=== PATIENT | female | born 1950 | race Caucasian/White ===

== ENCOUNTER 2016-07-31 17:03 | Observation (INO) | payer MEDICARE, MEDICAID ==
[~2016-07-31] VITALS: Ht 157.5 cm; Wt 75.0 kg
[~2016-07-31 17:03] MED LIST: CEPH500C3 PO; LISI-360 PO; VESI10TA4 PO; VICT18IN SQ
[2016-07-31 17:06] VITALS: BP 180/88; PULSE 88; RESP 12; TEMP 98.3; O2SAT 96
[2016-07-31] MEDS ORDERED: VICT18IN SQ (19:23)
[2016-07-31] MEDS ORDERED: LISI10TA3 PO (19:23)
[2016-07-31] MEDS ORDERED: SODIUM CHLORIDE 0.9% FLUSH 5 ML FLUSH IVF PRN (20:00)
--- NOTE | 2016-07-31 20:01 | PD ---
HPI Chief Complaint: Head Injury Time Seen by Provider: 19:30 Travel History International Travel<30 days: No Contact w/Intl Traveler<30days: No Traveled to known affect area: No History of Present Illness HPI Patient is a 65-year-old female who presents emergency department for evaluation of a head injury. Patient states she tripped in a hole at home in her yard, subsequently hitting her head on the concrete patio. Patient denies any dizziness, chest pain prior to the fall. She states that while in triage she fell again and subsequently causing a contusion to her left cheek. Patient states that she's had dizzy spells before but has not had one in approximately 10 years. She states that she feels like her thought process is "foggy". She also states that she's been dizzy and intermittently nauseated. She continues to deny any chest pain, palpitations, shortness of breath, headache. PFSH Past Medical History Anxiety: Yes Cancer: No Cardiovascular Problems: Yes Cerebrovascular Accident: No Diabetes: Yes Patient Takes Glucophage: No Diminished Hearing: No Genitourinary: No Hypertension: Yes (Takes Lisinopril 10mg daily) Implanted Vascular Access Dvce: No Musculoskeletal: Yes Neurologic: Yes Psychiatric: No Reproductive: No Respiratory: No Migraines: Yes (None in past 10 years) Seizures: No Tetanus Vaccination: Unknown Influenza Vaccination: Yes Menopausal: Yes Ovarian Cysts: Yes Tubal Ligation: Yes Past Surgical History Tonsillectomy: Yes Other Surgery: No Social History Alcohol Use: No Tobacco Use: No Substance Use: No Allergies-Medications (Allergen,Severity, Reaction): Coded Allergies: No Known Allergies (Unverified , 07/31/16) Reported Meds & Prescriptions Reported Meds & Active Scripts Active Reported Lisinopril 10 Mg Tab 10 Mg PO DAILY Victoza Inj (Liraglutide Inj) 18 Mg/3 Ml Pen 1.2 Mg SQ ONCE Review of Systems Except as stated in HPI: all other systems reviewed are Neg Eyes: No: Visual changes HENT: No: Headaches, Neck Pain Cardiovascular: No: Chest Pain or Discomfort Respiratory: No: Shortness of Breath Gastrointestinal: Positive: Nausea, No: Vomiting, Diarrhea, Abdominal Pain Musculoskeletal: No: Myalgias Skin: Positive Lumps, Positive Change in Pigmentation, Positive Lesions Neurologic: Positive: Dizziness Physical Exam Narrative GENERAL: Well-developed, well-nourished, alert female. Resting comfortably in no acute distress. SKIN: Warm and dry. Patient to forehead, contusion to left cheek HEAD: Atraumatic. Normocephalic. EYES: Pupils equal and round. No scleral icterus. No injection or drainage. ENT: No nasal bleeding or discharge. Mucous membranes pink and moist. NECK: Trachea midline. No JVD. CARDIOVASCULAR: Regular rate and rhythm. No murmur appreciated. RESPIRATORY: No accessory muscle use. Clear to auscultation. Breath sounds equal bilaterally. GASTROINTESTINAL: Abdomen soft, non-tender, nondistended. Hepatic and splenic margins not palpable. MUSCULOSKELETAL: No obvious deformities. No clubbing. No cyanosis. No edema. NEUROLOGICAL: Awake and alert. No obvious cranial nerve deficits. Motor grossly within normal limits. Normal speech. PSYCHIATRIC: Appropriate mood and affect; insight and judgment normal. Data Data Last Documented VS Vital Signs Date Time Temp Pulse Resp B/P Pulse Ox O2 Delivery O2 Flow Rate FiO2 07/31/16 20:45 100 Room Air 07/31/16 17:06 98.3 88 12 180/[address] Brain W/O Iv Contrast(Rout) (07/31/16 ) Electrocardiogram (07/31/16 19:49) Complete Blood Count With Diff (07/31/16 19:49) Comprehensive Metabolic Panel (07/31/16 19:49) Magnesium (Mg) (07/31/16 19:49) Ckmb (Isoenzyme) Profile (07/31/16 19:49) Troponin I (07/31/16 19:49) Act Partial Throm Time (Ptt) (07/31/16 19:49) Prothrombin Time / Inr (Pt) (07/31/16 19:49) Urinalysis - C+S If Indicated (07/31/16 19:49) Blood Glucose (07/31/16 19:49) Ecg Monitoring (07/31/16 19:49) Iv Access Insert/Monitor (07/31/16 19:49) Oximetry (07/31/16 19:49) Oxygen Administration (07/31/16 19:49) Sodium Chloride 0.9% Flush (Ns Flush) (07/31/16 20:00) Urine Culture (07/31/16 20:34) Ceftriaxone Inj (Rocephin Inj) (07/31/16 21:45) Orthostatic Vital Signs (07/31/16 21:31) Sodium Chlor 0.9% 1000 Ml Inj (Ns 1000 M (07/31/16 21:45) Ondansetron Inj (Zofran Inj) (07/31/16 22:30) Labs Laboratory Tests Test 07/31/16 07/31/16 20:32 20:34 White Blood Count 13.1 TH/MM3 Red Blood Count 4.80 MIL/MM3 Hemoglobin 14.3 GM/DL Hematocrit 41.6 % Mean Corpuscular Volume 86.7 FL Mean Corpuscular Hemoglobin 29.7 PG Mean Corpuscular Hemoglobin 34.3 % Concent Red Cell Distribution Width 13.0 % Platelet Count 234 TH/MM3 Mean Platelet Volume 9.9 FL Neutrophils (%) (Auto) 69.9 % Lymphocytes (%) (Auto) 22.2 % Monocytes (%) (Auto) 5.9 % Eosinophils (%) (Auto) 1.3 % Basophils (%) (Auto) 0.7 % Neutrophils # (Auto) 9.2 TH/MM3 Lymphocytes # (Auto) 2.9 TH/MM3 Monocytes # (Auto) 0.8 TH/MM3 Eosinophils # (Auto) 0.2 TH/MM3 Basophils # (Auto) 0.1 TH/MM3 CBC Comment DIFF FINAL Differential Comment Prothrombin Time 11.0 SEC Prothromb Time International 1.0 RATIO Ratio Activated Partial 24.9 SEC Thromboplast Time Sodium Level 136 MEQ/L Potassium Level 4.5 MEQ/L Chloride Level 100 MEQ/L Carbon Dioxide Level 28.2 MEQ/L Anion Gap 8 MEQ/L Blood Urea Nitrogen 10 MG/DL Creatinine 0.89 MG/DL Estimat Glomerular Filtration 63 ML/MIN Rate Random Glucose 345 MG/DL Calcium Level 8.8 MG/DL Magnesium Level 1.7 MG/DL Total Bilirubin 0.4 MG/DL Aspartate Amino Transf 5 U/L (AST/SGOT) Alanine Aminotransferase 14 U/L (ALT/SGPT) Alkaline Phosphatase 99 U/L Total Creatine Kinase 74 U/L Troponin I LESS THAN 0.02 NG/ML Total Protein 7.9 GM/DL Albumin 3.5 GM/DL Urine Color YELLOW Urine Turbidity HAZY Urine pH 7.0 Urine Specific [place] 1.024 Urine Protein NEG mg/dL Urine Glucose (UA) 1000 mg/dL Urine Ketones NEG mg/dL Urine Occult Blood NEG Urine Nitrite POS Urine Bilirubin NEG Urine Urobilinogen LESS THAN 2.0 MG/DL Urine Leukocyte Esterase LARGE Urine RBC 17 /hpf Urine WBC 20 /hpf Urine Squamous Epithelial 7 /hpf Cells Urine Bacteria OCC /hpf Urine Yeast (Budding) RARE Microscopic Urinalysis Comment CULTURE INDICATED MDM Medical Decision Making Medical Screen Exam Complete: Yes Emergency Medical Condition: Yes Interpretation(s) Last Impressions Head CT 07/31/16 0000 Signed Impressions: Service Date/Time: Sunday, July 31, 2016 19:58 - CONCLUSION: 1. Chronic small vessel ischemic change. 2. No acute intracranial abnormality. Jonn Grant Jr., MD Laboratory Tests Test 07/31/16 07/31/16 20:32 20:34 White Blood Count 13.1 TH/MM3 Red Blood Count 4.80 MIL/MM3 Hemoglobin 14.3 GM/DL Hematocrit 41.6 % Mean Corpuscular Volume 86.7 FL Mean Corpuscular Hemoglobin 29.7 PG Mean Corpuscular Hemoglobin 34.3 % Concent Red Cell Distribution Width 13.0 % Platelet Count 234 TH/MM3 Mean Platelet Volume 9.9 FL Neutrophils (%) (Auto) 69.9 % Lymphocytes (%) (Auto) 22.2 % Monocytes (%) (Auto) 5.9 % Eosinophils (%) (Auto) 1.3 % Basophils (%) (Auto) 0.7 % Neutrophils # (Auto) 9.2 TH/MM3 Lymphocytes # (Auto) 2.9 TH/MM3 Monocytes # (Auto) 0.8 TH/MM3 Eosinophils # (Auto) 0.2 TH/MM3 Basophils # (Auto) 0.1 TH/MM3 CBC Comment DIFF FINAL Differential Comment Prothrombin Time 11.0 SEC Prothromb Time International 1.0 RATIO Ratio Activated Partial 24.9 SEC Thromboplast Time Sodium Level 136 MEQ/L Potassium Level 4.5 MEQ/L Chloride Level 100 MEQ/L Carbon Dioxide Level 28.2 MEQ/L Anion Gap 8 MEQ/L Blood Urea Nitrogen 10 MG/DL Creatinine 0.89 MG/DL Estimat Glomerular Filtration 63 ML/MIN Rate Random Glucose 345 MG/DL Calcium Level 8.8 MG/DL Magnesium Level 1.7 MG/DL Total Bilirubin 0.4 MG/DL Aspartate Amino Transf 5 U/L (AST/SGOT) Alanine Aminotransferase 14 U/L (ALT/SGPT) Alkaline Phosphatase 99 U/L Total Creatine Kinase 74 U/L Troponin I LESS THAN 0.02 NG/ML Total Protein 7.9 GM/DL Albumin 3.5 GM/DL Urine Color YELLOW Urine Turbidity HAZY Urine pH 7.0 Urine Specific [place] 1.024 Urine Protein NEG mg/dL Urine Glucose (UA) 1000 mg/dL Urine Ketones NEG mg/dL Urine Occult Blood NEG Urine Nitrite POS Urine Bilirubin NEG Urine Urobilinogen LESS THAN 2.0 MG/DL Urine Leukocyte Esterase LARGE Urine RBC 17 /hpf Urine WBC 20 /hpf Urine Squamous Epithelial 7 /hpf Cells Urine Bacteria OCC /hpf Urine Yeast (Budding) RARE Microscopic Urinalysis Comment CULTURE INDICATED Vital Signs Date Time Temp Pulse Resp B/P Pulse Ox O2 Delivery O2 Flow Rate FiO2 07/31/16 17:06 98.3 88 12 180/88 96 Room Air Differential Diagnosis Arrhythmia versus electrolyte abnormality versus TIA versus CVA versus orthostatic hypotension versus vertigo versus contusion versus fracture Narrative Course Patient is a 65 year old female who presents to emergency room for evaluation of a head injury. While in triage patient had a syncopal episode that was witnessed by staff. Patient reports a history of dizziness but states she's been dizzy since she hit her head the first time at home, patient is neurologically intact. EKG shows sinus rhythm, inferior infarct. Stable when compared to prior EKG. Didn't placed on some itchy monitoring, continuous pulse oximetry, IV access initiated and labs and imaging ordered. CT scan of the brain shows chronic small vessel ischemic change. No acute intracranial abnormality. CBC with an elevated white count at 13.1. Chemistry with a glucose of 345, troponin is less than 2, coags are normal, urinalysis shows nitrite positive urinary tract infection. Patient was given Rocephin IV in the emergency department as well as bolus of normal saline. Vital signs are stable. She remains neurologically intact. She does have a contusion to the left cheek and the mid forehead. She has had no further complaints of nausea or dizziness since presenting. The witnessed syncopal episode as well as urinary tract infection, patient was placed under observation. [facility] paged for admission. Dr. Hutchins accepted admission. Diagnosis Primary Impression: Syncope Qualified Code: R55 - Syncope, unspecified syncope type Additional Impressions: Concussion Qualified Code: S06.0X0A - Concussion, without loss of consciousness, initial encounter Urinary tract infection Qualified Code: N39.0 - Urinary tract infection with hematuria, site unspecified Admitting Information Admitting Physician Requests: Observation Condition: Stable Lety Lucero Jul 31, 2016 20:01
--- NOTE | 2016-07-31 20:15 | RADRPT ---
EXAM DATE/TIME: 07/31/2016 19:58 [facility] COMPARISON: No previous studies available for comparison. INDICATIONS : Trauma. Fall. Dizziness. RADIATION DOSE: 56.35 CTDIvol (mGy) MEDICAL HISTORY : Hypertension. Diabetes mellitus type 2. Migraines. SURGICAL HISTORY : Tubal ligation. ENCOUNTER: Initial ACUITY: 1 day PAIN SCALE: 4/10 LOCATION: cranial TECHNIQUE: Multiple contiguous axial images were obtained of the head. Using automated exposure control and adj ustment of the mA and/or kV according to patient size, radiation dose was kept as low as reasonably a chievable to obtain optimal diagnostic quality images. FINDINGS: CEREBRUM: Periventricular low attenuation change particularly involving the frontal lobes bilaterally. The vent ricles are normal for age. No evidence of midline shift, mass lesion, hemorrhage or acute infarction . No extra-axial fluid collections are seen. POSTERIOR FOSSA: The cerebellum and brainstem are intact. The 4th ventricle is midline. The cerebellopontine angle i s unremarkable. EXTRACRANIAL: The visualized portion of the orbits is intact. SKULL: The calvaria is intact. No evidence of skull fracture. CONCLUSION: 1. Chronic small vessel ischemic change. 2. No acute intracranial abnormality. Jonn Grant Jr., MD on July 31, 2016 at 20:12 Board Certified Radiologist. This report was verified electronically.
[2016-07-31 20:45] VITALS: O2SAT 100
[2016-07-31 20:57] LABS: AUTOMATED NEUTROPHIL # 9.2 TH/MM3 (1.8-7.7); BASOPHIL # 0.1 TH/MM3 (0-0.2); BASOPHIL % 0.7 % (0.0-2.0); EOSINOPHIL # 0.2 TH/MM3 (0-0.4); EOSINOPHIL % 1.3 % (0.0-4.0); HEMATOCRIT 41.6 % (35.0-46.0); HEMO FLAGS DIFF FINAL; LYMPH % 22.2 % (9.0-44.0); LYMPHOCYTE # 2.9 TH/MM3 (1.0-4.8); MEAN CELL VOLUME 86.7 FL (80.0-100.0); MEAN CORPUSCULAR HEMOGLOBIN 29.7 PG (27.0-34.0); MEAN CORPUSCULAR HGB CONC 34.3 % (32.0-36.0); MONO % 5.9 % (0.0-8.0); NEUT % 69.9 % (16.0-70.0); PLATELET COUNT 234 TH/MM3 (150-450); WHITE BLOOD COUNT 13.1 TH/MM3 (4.0-11.0)
[2016-07-31 21:05] LABS: APTT (PATIENT) 24.9 SEC (24.3-30.1)
[2016-07-31 21:10] LABS: ANION GAP 8 MEQ/L (5-15); AST (GOT) 5 U/L (15-37); BICARBONATE 28.2 MEQ/L (21.0-32.0); BLOOD UREA NITROGEN 10 MG/DL (7-18); CHLORIDE 100 MEQ/L (98-107); GLOMERULAR FILTRATION RATE 63 ML/MIN (>89); MAGNESIUM 1.7 MG/DL (1.5-2.5); POTASSIUM 4.5 MEQ/L (3.5-5.1); SODIUM (NA) 136 MEQ/L (136-145)
[2016-07-31 21:15] LABS: ALKALINE PHOSPHATASE 99 U/L (45-117); ALT (GPT) 14 U/L (10-53); TOTAL BILIRUBIN ADULT 0.4 MG/DL (0.2-1.0)
[2016-07-31 21:16] LABS: CREATINE KINASE 74 U/L (26-192)
[2016-07-31 21:28] LABS: BACTERIA, URINE OCC /hpf; BLOOD, URINE NEG (NEG); COMMENT (UR) CULTURE INDICATED; CULTURE IF INDICATED CULTURE INDICATED; GLUCOSE,URINE 1000 mg/dL (NEG); KETONE, URINE NEG (NEG); SQUAMOUS EPITHELIAL CELL URINE 7 /hpf (0-5); URINE COLOR YELLOW (YELLW/STRAW)
[2016-07-31 21:29] LABS: NITRITE,URINE POS (NEG)
[2016-07-31] MEDS ORDERED: SODIUM CHLOR 0.9% 1000 ML INJ 1,000 ML IV ONE (21:45)
[2016-07-31] MEDS ORDERED: cefTRIAXone INJ 1,000 MG in SODIUM CHLORIDE 0.9% INJ 100 ML IV ONE (21:45)
[2016-07-31] MEDS ORDERED: ONDANSETRON HCL 4 MG/2 ML VIAL IV PUSH ONE (22:30)
[2016-07-31] MEDS ORDERED: SODIUM CHLORIDE 0.9% FLUSH 5 ML FLUSH FLUSH PRN (23:15)
[2016-07-31] MEDS ORDERED: NALOXONE HCL 0.4 MG/ML AMP IV PRN (23:15)
[2016-07-31] MEDS ORDERED: DEXTROSE 50% IN WATER 50 ML VIAL(D50) IV PUSH PRN (23:30)
[2016-07-31] MEDS ORDERED: GLUCAGON 1 MG/ML VIAL OTHER PRN (23:30)
[2016-08-01 03:28] LABS: CREATINE KINASE 50 U/L (26-192)
[2016-08-01 04:16] LABS: AUTOMATED NEUTROPHIL # 7.3 TH/MM3 (1.8-7.7); BASOPHIL # 0.1 TH/MM3 (0-0.2); BASOPHIL % 0.5 % (0.0-2.0); EOSINOPHIL # 0.2 TH/MM3 (0-0.4); EOSINOPHIL % 1.8 % (0.0-4.0); HEMATOCRIT 39.3 % (35.0-46.0); HEMO FLAGS DIFF FINAL; LYMPH % 29.8 % (9.0-44.0); LYMPHOCYTE # 3.5 TH/MM3 (1.0-4.8); MEAN CELL VOLUME 86.3 FL (80.0-100.0); MEAN CORPUSCULAR HEMOGLOBIN 28.7 PG (27.0-34.0); MEAN CORPUSCULAR HGB CONC 33.2 % (32.0-36.0); MONO % 5.9 % (0.0-8.0); PLATELET COUNT 219 TH/MM3 (150-450); RED BLOOD COUNT 4.55 MIL/MM3 (4.00-5.30); RED CELL DISTRIBUTION WIDTH 12.6 % (11.6-17.2); WHITE BLOOD COUNT 11.8 TH/MM3 (4.0-11.0)
[2016-08-01 04:26] LABS: BICARBONATE 27.3 MEQ/L (21.0-32.0); POTASSIUM 3.9 MEQ/L (3.5-5.1)
[2016-08-01 07:33] VITALS: BP 136/65; PULSE 76; RESP 16; O2SAT 98
--- NOTE | 2016-08-01 08:12 | EKG ---
Date Performed: 08/01/2016 Time Performed: 02:42:50 PTAGE: 65 years EKG: Sinus rhythm POSSIBLE INFERIOR MYOCARDIAL INFARCTION BORDERLINE ECG NO SIGNIFICANT CHANGE FROM PRIOR ELECTROCARDI OGRAM. PREVIOUS TRACING : 05/15/2015 12.04 DOCTOR: Yonny Wright Interpretating Date/Time 08/01/2016 08:11:05
[2016-08-01] MEDS: INSULIN ASPART SUPPLEMENTAL SCALE SQ SCH ×4 (08:25→21:46)
[2016-08-01] MEDS: SODIUM CHLORIDE 0.9% FLUSH 5 ML FLUSH FLUSH SCH ×2 (08:58→21:47)
--- NOTE | 2016-08-01 09:33 | EKG ---
Date Performed: 07/31/2016 Time Performed: 21:26:10 PTAGE: 65 years EKG: Sinus rhythm INFERIOR MYOCARDIAL INFARCTION ABNORMAL ECG NO PREVIOUS TRACING DOCTOR: Yonny Wright Interpretating Date/Time 08/01/2016 09:30:55
--- NOTE | 2016-08-01 09:49 | RADRPT ---
EXAM DATE/TIME: 08/01/2016 08:35 [facility] COMPARISON: CT BRAIN W/O CONTRAST, July 31, 2016, 19:58. INDICATIONS : Syncope. MEDICAL HISTORY : Hypertension. Ovarian cysts. Diabetes. SURGICAL HISTORY : Tonsillectomy. Tubal ligation. ENCOUNTER: Initial ACUITY: 1 day PAIN SCORE: 2/10 LOCATION: Bilateral neck PEAK SYSTOLIC VELOCITIES (cm/sec): ICA/CCA RATIO: Right: 1.6 Left: 1.0 ICA: Right: 108 Left: 88 CCA: Right: 67 Left: 89 ECA: Right: 186 Left: 125 VERTEBRAL: Right: 12 antegrade Left: 54 antegrade Elevated flow velocities and ICA/CCA ratios have been found to correlate with increased degrees of vessel stenosis, calculated as percentage of diameter relative to a normal segment of distal ICA/CCA FINDINGS: RIGHT CAROTID: No significant stenosis is visualized. The waveforms are within normal limits. There is calcific geronimo quing at the bulb extending into the internal carotid initial segment. LEFT CAROTID: No significant stenosis is visualized. The waveforms are within normal limits. Minimal soft and calc ific plaquing at the bulb VERTEBRAL ARTERIES: Antegrade flow is seen in both vertebral arteries. MISCELLANEOUS: None. CONCLUSION: Atherosclerotic plaquing mild lateral carotid bulbs calcific and more prominent on the right. No evid ence of anatomic or physiologic stenosis. Wilian Galarza MD on August 01, 2016 at 9:47 Board Certified Radiologist. This report was verified electronically.
[2016-08-01 10:17] LABS: CREATINE KINASE 63 U/L (26-192)
--- NOTE | 2016-08-01 11:19 | HHI.HP ---
[facility] Service [facility] Primary Care Physician Non-Staff Admission Diagnosis SYNCOPE, CONCUSSION Diagnoses: Chief Complaint: I fell Travel History International Travel<30 Days: No Contact w/Intl Traveler <30 Da: No Traveled to Known Affected Are: No History of Present Illness 65 years old female who presented to the ED with a complaint of head injury after she sustained a fall in her backyard patio and hit her head. The story is fairly vague when compare [employer], ED, and the patient. Patient stated that she fill down because she hit or tripped over a whole in her yard, she hit her head, but she denied any losing of consciousness, she didn 't have witnessed with her at that time, she didn't feel any chest pain short of breath palpitation dizziness or lightheadedness prior to the episodes, and she stated the episodes is purely mechanical. However I discussed with the nurse who told me that the patient in fact had episode of dizziness or syncope versus syncope in the triage however patient denying any episodes of dizziness. Patient stated after the fall and hitting her head she had headaches 4 out of 10, she felt a little nauseous but she didn't vomit, no change in her vision, as mentioned above no LOC, currently she doesn't have headache, no blurred vision, no chest pain short of breath, palpitation, dizziness lightheadedness, or diarrhea constipation she is not aware of significant dysuria urgency frequency despite she was found to have positive UA. In ED CT of the head was negative for bleeding or other etiology, chest x-ray was normal, urinalysis was remarkable for UTI. EKG no acute changes patient was given 1 dose of Rocephin in ED for UTI Review of Systems Other All 10 systems reviewed and was positive for what is mentioned in history of present illness otherwise negative Past Family Social History Past Medical History Anxiety Cardiovascular disease next line diabetes next line hypertension Sinusitis Migraine Past Surgical History Tonsillectomy Tubal ligation Allergies: Coded Allergies: No Known Allergies (Unverified , 07/31/16) Family History Her father of heart attack she couldn't remember the age Social History Denied tobacco alcohol or illicit drug abuse Physical Exam Vital Signs Vital Signs Date Time Temp Pulse Resp B/P Pulse Ox O2 Delivery O2 Flow Rate FiO2 08/01/16 07:33 76 16 136/65 98 Room Air 07/31/16 20:45 100 Room Air 07/31/16 20:45 100 Room Air 07/31/16 17:06 98.3 88 12 180/88 96 Room Air Physical Exam GENERAL: This is a well-nourished, well-developed patient, in no apparent distress. SKIN: No rashes, warm and dry HEAD: Normocephalic. Ecchymosis/contusion on the right forehead and cheek EYES: Pupils equal round and reactive. Extraocular motions intact. No scleral icterus. ENT: Nose without bleeding, or drainage, Airway patent. NECK: Trachea midline. Supple CARDIOVASCULAR: Regular rate and rhythm without murmurs, gallops, or rubs. RESPIRATORY: Fair air entry bilaterally. No wheezes, rales, or rhonchi. GASTROINTESTINAL: Abdomen soft, non-tender, nondistended. Positive bowel sounds MUSCULOSKELETAL: Extremities without clubbing, cyanosis, or edema. Pedal pulses appreciated NEUROLOGICAL: Awake and alert. Cranial nerves II through XII intact. Motor and sensory grossly within normal limits. Five out of 5 muscle strength in all muscle groups. Normal speech. Laboratory Laboratory Tests Test 07/31/16 07/31/16 08/01/16 08/01/16 20:32 20:34 02:30 03:23 White Blood Count 13.1 11.8 Red Blood Count 4.80 4.55 Hemoglobin 14.3 13.1 Hematocrit 41.6 39.3 Mean Corpuscular Volume 86.7 86.3 Mean Corpuscular Hemoglobin 29.7 28.7 Mean Corpuscular Hemoglobin 34.3 33.2 Concent Red Cell Distribution Width 13.0 12.6 Platelet Count 234 219 Mean Platelet Volume 9.9 10.3 Neutrophils (%) (Auto) 69.9 62.0 Lymphocytes (%) (Auto) 22.2 29.8 Monocytes (%) (Auto) 5.9 5.9 Eosinophils (%) (Auto) 1.3 1.8 Basophils (%) (Auto) 0.7 0.5 Neutrophils # (Auto) 9.2 7.3 Lymphocytes # (Auto) 2.9 3.5 Monocytes # (Auto) 0.8 0.7 Eosinophils # (Auto) 0.2 0.2 Basophils # (Auto) 0.1 0.1 CBC Comment DIFF FINAL DIFF FINAL Differential Comment Prothrombin Time 11.0 Prothromb Time International 1.0 Ratio Activated Partial 24.9 Thromboplast Time Sodium Level 136 139 Potassium Level 4.5 3.9 Chloride Level 100 105 Carbon Dioxide Level 28.2 27.3 Anion Gap 8 7 Blood Urea Nitrogen 10 9 Creatinine 0.89 0.68 Estimat Glomerular Filtration 63 87 Rate Random Glucose 345 279 Calcium Level 8.8 8.3 Magnesium Level 1.7 Total Bilirubin 0.4 Aspartate Amino Transf 5 (AST/SGOT) Alanine Aminotransferase 14 (ALT/SGPT) Alkaline Phosphatase 99 Total Creatine Kinase 74 50 Troponin I LESS THAN 0.02 LESS THAN 0.02 Total Protein 7.9 Albumin 3.5 Urine Color YELLOW Urine Turbidity HAZY Urine pH 7.0 Urine Specific [place] 1.024 Urine Protein NEG Urine Glucose (UA) 1000 Urine Ketones NEG Urine Occult Blood NEG Urine Nitrite POS Urine Bilirubin NEG Urine Urobilinogen LESS THAN 2.0 Urine Leukocyte Esterase LARGE Urine RBC 17 Urine WBC 20 Urine Squamous Epithelial 7 Cells Urine Bacteria OCC Urine Yeast (Budding) RARE Microscopic Urinalysis Comment CULTURE INDICATED Test 08/01/16 09:00 Total Creatine Kinase 63 Troponin I LESS THAN 0.02 Date/Time Procedure Status Source Growth 07/31/16 20:34 Urine Culture Received Urine Clean Catch Pending Result Diagram: 08/01/16 0323 08/01/16 0323 Imaging Last Impressions Carotid Artery Ultrasound 08/01/16 0000 Signed Impressions: Service Date/Time: Monday, August 01, 2016 08:35 - CONCLUSION: Atherosclerotic plaquing mild lateral carotid bulbs calcific and more prominent on the right. No evidence of anatomic or physiologic stenosis. Wilian Galarza MD Head CT 07/31/16 0000 Signed Impressions: Service Date/Time: Sunday, July 31, 2016 19:58 - CONCLUSION: 1. Chronic small vessel ischemic change. 2. No acute intracranial abnormality. Jonn Grant Jr., MD Assessment and Plan Assessment and Plan 65 years old female presented after she sustained a fall in her backyard and hit her head with a concrete Status post fall and right facial head trauma Questionable history of syncope presyncope not very well documented UTI Hypertension Diabetes mellitus patient on Victoza History of sinusitis History of anxiety DVT prophylaxis with SCD no chemical status post fall watch out for any hemorrhage Plan: Admit for observation Telemetry Pain management Check facial x-ray rule out any fracture Follow 2-D echo, carotid ultrasound has been ordered in ED Rocephin for UTI, follow urine culture Resume lisinopril from home meds rec, Vasotec as needed Hold Victoza, Accu-Chek, ISS, check hemoglobin A1c, Monitor BMP Discussed Condition With Patient and nurse Melina Adames MD Aug 01, 2016 11:19
[2016-08-01 12:00] VITALS: BP 137/72; PULSE 76; RESP 16; O2SAT 98
[2016-08-01] MEDS ORDERED: MORPHINE SULFATE 4 MG/ML INJ IV PUSH PRN ×2 (12:00)
[2016-08-01] MEDS ORDERED: ENALAPRILAT 1.25 MG/ML VIAL IV PUSH PRN (12:00)
--- NOTE | 2016-08-01 12:41 | RADRPT ---
EXAM DATE/TIME: 08/01/2016 12:07 [facility] COMPARISON: No previous studies available for comparison. INDICATIONS : Left face pain, fall out of wheelchair. MEDICAL HISTORY : None. SURGICAL HISTORY : None. ENCOUNTER: Initial ACUITY: 2 days PAIN SCORE: 2/10 LOCATION: Left cheek FINDINGS: The sinuses are clear. There is minimal nasal septal deviation convex to the left. The mandible is intact. CONCLUSION: I do not see a displaced nasal bone fracture. Abhilash Hernandez MD FACR on August 01, 2016 at 12:23 Board Certified Radiologist. This report was verified electronically.
[2016-08-01 13:50] VITALS: BP 144/78; PULSE 67; RESP 18; TEMP 97.9; O2SAT 95
--- NOTE | 2016-08-01 14:58 | EKG ---
Date Performed: 08/01/2016 Time Performed: 09:06:03 PTAGE: 65 years EKG: Sinus rhythm INFERIOR MYOCARDIAL INFARCTION ABNORMAL ECG NO SIGNIFICANT CHANGE FROM PRIOR ELECTROCARDIOGRAM. PREVIOUS TRACING : 08/01/2016 02.42 DOCTOR: Yonny Wright Interpretating Date/Time 08/01/2016 14:57:40
[2016-08-01 16:09] LABS: HEMOGLOBIN A1a 1.2 %; HEMOGLOBIN A1b 1.3 %; HEMOGLOBIN LA1C 3.3 %; HEMOGLOBIN P3 5.4 %
[2016-08-01 19:55] VITALS: BP 142/67; PULSE 70; RESP 20; TEMP 98.3; O2SAT 95
--- NOTE | 2016-08-01 21:01 | EC ---
Study Study Date:08/01/2016 STUDY CONCLUSIONS SUMMARY LEFT VENTRICLE: The cavity size was normal. Wall thickness was increased in a pattern of mild LVH. There was concentric hypertrophy. Systolic function was normal. The estimated ejection fraction was in the range of 60% to 65%. Wall motion was normal; there were no regional wall motion abnormalities. Doppler parameters are consistent with abnormal left ventricular relaxation (grade 1 diastolic dysfunction). If LV function is below 40, please consider prescribing an ACEI or ARB or document rationale for non-use. PROCEDURE DATA STUDY STATUS: Elective. Procedure: Transthoracic echocardiography. Image quality was good. Scanning was performed from the parasternal, apical, and subcostal acoustic windows. Study completion: The patient tolerated the procedure well. Transthoracic echocardiography. M-mode, complete 2D, complete spectral Doppler, and color Doppler. Height: Height: 62in. Weight: Weight: 164.7lb. Body mass index: BMI: 30.2kg/m^2. Body surface area: BSA: 1.76m^2. Patient status: Inpatient. CARDIAC ANATOMY LEFT VENTRICLE: The cavity size was normal. Wall thickness was increased in a pattern of mild LVH. There was concentric hypertrophy. Systolic function was normal. The estimated ejection fraction was in the range of 60% to 65%. Wall motion was normal; there were no regional wall motion abnormalities. Doppler parameters are consistent with abnormal left ventricular relaxation (grade 1 diastolic dysfunction). AORTIC VALVE: The valve appears to be grossly normal. Doppler: There was no stenosis. No significant regurgitation. Valve area: 1.39cm^2(VTI). Indexed valve area: 0.79cm^2/m^2 (VTI). Valve area: 1.36cm^2 (Vmax). Indexed valve area: 0.77cm^2/m^2 (Vmax). Mean gradient: 4mm Hg (S). MITRAL VALVE: The valve appears to be grossly normal. Doppler: There was no evidence for stenosis. Trace regurgitation. Peak gradient: 2mm Hg (D). LEFT ATRIUM: The atrium was normal in size. RIGHT VENTRICLE: The cavity size was normal. Systolic function was normal. PULMONIC VALVE: The valve appears to be grossly normal. Doppler: There was no evidence for stenosis. No significant regurgitation. TRICUSPID VALVE: The valve appears to be grossly normal. Doppler: There was no evidence for stenosis. No significant regurgitation. PERICARDIUM: There was no pericardial effusion. Patient weight: 164.7lb _Ejection fraction:_ 65-75% _Fractional shortening:_ 32% up to 5Kg 5-11.5Kg 11.6-22.9Kg 23-45Kg 45-57Kg Aortic Root 7-13 <17 13-22 17-27 17-27 LA diam 6-13 <23 24-38 33-47 37-40 RVID 10-17 7-15 7-15 7-18 8-17 LVIDd 12-22 <32 24-38 33-47 37-40 LVPW 2-4 3-6 5-7 6-8 7-8 IVS 2-4 3-6 5-7 6-8 7-8 BASIC MEASUREMENTS ADULT NORMAL Left ventricle LV internal dimension, ED, chordal *38.9 mm 43-52 level, PLAX LV internal dimension, ES, chordal 26.3 mm 23-38 level, PLAX Fractional shortening, chordal level, 32 % >29 PLAX LV posterior wall thickness, ED 11.5 mm IVS/LVPW ratio, ED 1 <1.3 Ventricular septum Septal thickness, ED 11.5 mm Aortic valve Leaflet separation 21 mm 15-26 Aorta Root diameter, ED 32 mm Left atrium Anterior-posterior dimension 21 mm Anterior-posterior dimension index 1.19 cm/m^2 <2.2 BASIC MEASUREMENTS ADULT NORMAL Aortic valve Leaflet separation 21 mm 15-26 DOPPLER MEASUREMENTS ADULT NORMAL Aortic valve Peak velocity, S 148 cm/s Mean velocity, S 98.6 cm/s VTI, S 26.7 cm Mean gradient, S 4 mm Hg Valve area, VTI 1.39 cm^2 Valve area index, VTI 0.79 cm^2/m^2 Valve area, Vmax 1.36 cm^2 Valve area index, Vmax 0.77 cm^2/m^2 Mitral valve Peak E-wave velocity 76 cm/s Peak A-wave velocity 103 cm/s Deceleration time *289 ms 150-230 Peak gradient, D 2 mm Hg Peak E/A ratio 0.7 Pulmonic valve Peak velocity, S 67.7 cm/s LEGEND: Mean values are shown as u=mean value. Asterisk (*) montaño values outside specified normal range. Prepared and signed by Matthew Mckeon [id number]
[2016-08-01] MEDS ORDERED: cefTRIAXone INJ 1,000 MG in SODIUM CHLORIDE 0.9% INJ 100 ML IV SCH (23:30)
[2016-08-02 04:16] VITALS: BP 125/71; PULSE 73; RESP 20; TEMP 98.6; O2SAT 95
[2016-08-02] MEDS: INSULIN ASPART SUPPLEMENTAL SCALE SQ SCH ×3 (06:02→18:46)
[2016-08-02 08:00] VITALS: PULSE 66
[2016-08-02 08:11] VITALS: BP 165/74; PULSE 75; RESP 18; TEMP 98.7; O2SAT 99
[2016-08-02] MEDS ORDERED: INSULIN DETEMIR 100 UNITS/ML VIAL SQ SCH (08:15)
[2016-08-02] MEDS ORDERED: LISINOPRIL 10 MG TAB PO SCH (09:00)
[2016-08-02] MEDS: SODIUM CHLORIDE 0.9% FLUSH 5 ML FLUSH FLUSH SCH (09:16)
[2016-08-02 10:22] VITALS: BP_SYST 147; BP_SYST 148; BP_SYST 151; BP_DIAS 67; BP_DIAS 69; BP_DIAS 72; PULSE 63; O2SAT 98
--- NOTE | 2016-08-02 10:24 | HHI.PR ---
Subjective Remarks Follow-up for fall with possible syncope and hyperglycemia. SO at bedside. The patient is doing well today. She states that prior to admission she tripped over a hole in her backyard and fell, denies any LOC. She states that she has been ambulating here with no difficulties. She does state that whenever she sits up she is briefly dizzy, but spontaneously resolves after she sits for a minute. She denies any lightheadedness, nausea, vomiting, chest pain , shortness breath, sweats, weakness. She sees the physicians at [facility] for her PCPs. She states that she hasn't been taking care of her self recently including her diabetes. Has not been always been compliant with her home medications. She states that she's been tried on oral hypoglycemics and hasn't tolerated those in the past. She understands that she may need to be on insulin in the short-term, states she knows how to give insulin shots because her mom was a diabetic and she helped her. Objective Vitals Vital Signs Date Time Temp Pulse Resp B/P Pulse Ox O2 Delivery O2 Flow Rate FiO2 08/02/16 08:11 98.7 75 18 165/74 99 08/02/16 04:16 98.6 73 20 125/71 95 08/01/16 19:55 98.3 70 20 142/67 95 08/01/16 13:50 97.9 67 18 144/78 95 08/01/16 12:00 76 16 137/72 98 Room Air Result Diagram: 08/01/16 0323 08/01/16 0323 Imaging Last Impressions Facial Bones X-Ray 08/01/16 0000 Signed Impressions: Service Date/Time: Monday, August 01, 2016 12:07 - CONCLUSION: I do not see a displaced nasal bone fracture. Abhilash Hernandez MD FACR Carotid Artery Ultrasound 08/01/16 0000 Signed Impressions: Service Date/Time: Monday, August 01, 2016 08:35 - CONCLUSION: Atherosclerotic plaquing mild lateral carotid bulbs calcific and more prominent on the right. No evidence of anatomic or physiologic stenosis. Wilian Galarza MD Head CT 07/31/16 0000 Signed Impressions: Service Date/Time: Sunday, July 31, 2016 19:58 - CONCLUSION: 1. Chronic small vessel ischemic change. 2. No acute intracranial abnormality. Jonn Grant Jr., MD Objective Remarks GENERAL: Well-developed well-nourished. In no acute distress. SKIN: Warm and dry. Ecchymosis/contusion on the right forehead and cheek. HEENT: Normocephalic. Pupils equal and round. Mucous membranes pink and moist. CARDIOVASCULAR: Regular rate and rhythm. No murmur appreciated. RESPIRATORY: No accessory muscle use. Clear to auscultation. Breath sounds equal bilaterally. GASTROINTESTINAL: Abdomen soft, non-tender, nondistended. Bowel sounds x4. MUSCULOSKELETAL: No obvious deformities. No clubbing or cyanosis. No edema. NEUROLOGICAL: Awake and alert. No focal neurological deficits. Moves upper and lower extremities spontaneously. Normal speech. PSYCHIATRIC: Appropriate mood and affect; insight and judgment normal. A/P Problem List: (1) Syncope ICD Code: R55 Status: Acute (2) Urinary tract infection ICD Code: N39.0 Status: Acute (3) DM (diabetes mellitus) ICD Code: E11.9 Status: Acute Assessment and Plan 65-year-old female with a past medical history of DM, neuropathy, HTN who presented after a fall Fall: Per patient's report, sounds mechanical, although question of syncope per ED report. Syncope workup has been unremarkable including negative troponin 3 ; head CT with no acute abnormality; carotid ultrasound with no evidence of anatomic or physiologic stenosis; echocardiogram with grade 1 diastolic dysfunction, normal EF and systolic function. Facial bones x-ray showed no definite fracture. PT recommended home health as needed, case management consulted. Check orthostatics. Uncontrolled diabetes mellitus: Hemoglobin A1c 12.7. Patient reports occasional noncompliance with home medications. Plan to start on basal Levemir and sliding scale insulin for now. Diabetic education. Outpatient PCP follow- up. UTI: UA with evidence of UTI. Preliminary urine culture growing gram-negative rods. On empiric IV ceftriaxone, continue oral antibiotics at [facility]. Hypertension: BP is labile. Continue home lisinopril. Check orthostatics. Monitor adjustments as needed. Vasotec as needed. Written by Jean Stockton, acting as scribe for Dr. Luna on 08/02/16 at 10:22. The documentation accurately reflects the work performed [id number] by mi Dr. Luna on 08/02/16 at 10:22. Discharge Planning Likely [facility] home with HHC later today if patient remains stable and blood glucoses are better controlled. Problem Qualifiers (1) Syncope: Qualified Code: R55 - Syncope, unspecified syncope type (2) Urinary tract infection: Qualified Code: N39.0 - Urinary tract infection with hematuria, site unspecified (3) DM (diabetes mellitus): Qualified Code: E11.65 - Type 2 diabetes mellitus with hyperglycemia, without long-term current use of insulin Jean Stockton Aug 02, 2016 10:24 Jessica Luna MD Aug 02, 2016 13:00
--- NOTE | 2016-08-02 10:25 | HHI.FF ---
Face to Face Verification Diagnosis: (1) DM (diabetes mellitus) (2) Syncope (3) Urinary tract infection Physical Therapy Order: Evaluate and Treat Home Health Nursing Order: Medical education Signs/symptoms of disease process Diabetic education Medication education-adverse effect Nursing assessment with vital signs I have seen patient Jody Plascencia on 08/02/16. My clinical findings support the need for the requested home health care services because: Med compliance is questionable Need for psychosocial assistance Injectable med education/admin I certify that my clinical findings support that this patient is homebound because: Need for psychosocial assistance Jean Stockton Aug 02, 2016 10:25 Jessica Luna MD Aug 03, 2016 18:04
[2016-08-02 12:05] VITALS: BP 146/69; PULSE 71; RESP 20; TEMP 97.7; O2SAT 98
[2016-08-02] MEDS ORDERED: [UNRECOGNIZED DRUG - CODE] (13:09)
[2016-08-02] MEDS ORDERED: BLOOD GLUCOSE T1 TES (13:09)
[2016-08-02] MEDS ORDERED: LEVEMIR SQ (15:15)
[2016-08-02] MEDS ORDERED: NOVOLOGSS SQ (16:41)
[2016-08-02] MEDS ORDERED: AMOX250C3 PO (16:41)
== END 2016-08-02 21:00 | disposition home or self-care (01) ==
LOC: NEPA 17:03 → NEDA 22:34 → NEDH 08-01 02:34 → NEPHCDU 08-01 13:34
PROVIDERS: ADMIT Hospitalist; ATTEND Hospitalist
DX: R55 Syncope and collapse (principal); S06.0X0A Concussion without loss of consciousness, initial encounter; N39.0 Urinary tract infection, site not specified; B96.20 Unspecified Escherichia coli [E. coli] as the cause of diseases classified elsewhere; I25.10 Atherosclerotic heart disease of native coronary artery without angina pectoris; I10 Essential (primary) hypertension; E11.65 Type 2 diabetes mellitus with hyperglycemia; E11.40 Type 2 diabetes mellitus with diabetic neuropathy, unspecified; Z91.14 Patient's other noncompliance with medication regimen; Z79.84 Long term (current) use of oral hypoglycemic drugs; W19.XXXA Unspecified fall, initial encounter; Y92.007 Garden or yard of unspecified non-institutional (private) residence as the place of occurrence of the external cause
CPT/HCPCS: 70150; 70450; 80048; 80053; 81001; 82550; 82948; 83036; 83735; 84484; 85025; 85610; 85730; 87077; 87086; 87186; 93005; 93306; 93880; 96374; 96375; 97162; 99285; G0378; G8987; G8988; J0696; J1815; J2405; J7030